=== PATIENT | female | born 1975 | race Caucasian/White ===

== ENCOUNTER 2025-01-08 10:01 | Day surgery (SDC) | payer OTHER ==
[~2025-01-08 10:01] MED LIST: Sodium Chloride 0.9% 10 ML Syringe FLUSH PRN; Sodium Chloride 0.9% 2.5 ML Syringe FLUSH PRN
[2025-01-08] MEDS: Lactated Ringers 1,000 ML IV SCH (10:53)
[2025-01-08] MEDS ORDERED: Propofol 200 MG/20 ML SDV ONE ×2 (11:26→13:16)
[2025-01-08] MEDS ORDERED: Ketorolac 30 MG/ML SDV ONE (13:24)
== END 2025-01-08 14:10 | disposition home or self-care (01) ==
LOC: MW.SDS 10:01
PROVIDERS: ATTEND Surgery
DX: Z12.11 Encounter for screening for malignant neoplasm of colon (principal); D12.2 Benign neoplasm of ascending colon; R19.5 Other fecal abnormalities; Z87.891 Personal history of nicotine dependence
CPT/HCPCS: 45380; 81025; J1885; J2003; J2704; J7120